=== PATIENT | female | born 1990 | race Caucasian/White ===

== ENCOUNTER 2017-10-26 10:31 | Emergency (ER) | payer MEDICAID ==
[~2017-10-26] VITALS: Ht 157.5 cm; Wt 75.0 kg
[2017-10-26 11:48] VITALS: BP 111/61
[2017-10-26] MEDS ORDERED: LIDOCAINE HCL 1% 20ML VIAL (Pyxis) INJ INFIL ONE (12:30)
[2017-10-26] MEDS ORDERED: BACITRACIN ZINC OINT UDPKT TOP ONE (13:30)
== END 2017-10-26 13:43 | disposition home or self-care (01) ==
LOC: ER 10:31
DX: L60.0 Ingrowing nail (principal); B35.3 Tinea pedis; Z98.51 Tubal ligation status
CPT/HCPCS: 11750; 99283; A4217; J3490; X7700; Z7610